=== PATIENT | female | born 1940 | race Caucasian/White ===

== ENCOUNTER 2019-04-22 07:09 | Day surgery (SDC) | payer OTHER, SELFPAY ==
[2019-04-22 07:20] VITALS: BP 142/71; PULSE 73; RESP 16; TEMP 35.6; O2SAT 97
[2019-04-22] MEDS: Lactated Ringers 1,000 ML 80 ML IV (07:47)
[2019-04-22] MEDS: ceFAZolin 1 GM/50 ML BAG IVPB (08:25)
[2019-04-22] MEDS: Bupivacaine 0.5% Pres-Free 30 ML VIAL (08:41)
[2019-04-22] MEDS: Lidocaine 1% Multi-Dose 50 ML VIAL (08:41)
[2019-04-22] MEDS: Dexamethasone 4 MG/ML VIAL (09:16)
--- NOTE | 2019-04-22 09:29 | W.PM.DSUDISC ---
Discharge Plan Disposition Patient Disposition: HOME Condition: Good Discharge Details Attending Provider: Kleber Stearns Primary Care Provider: Anderson Julien Home Meds and New Rx's Prescriptions: New hydrocodone-acetaminophen [[place]] 5-325 mg tablet 1 tab PO Q6H PRN (Reason: pain) Qty: 7 RF: 0 Continued metformin 500 mg Tablet 500 mg PO BID RF: 0 lisinopril 20 mg Tablet 20 mg PO DAILY RF: 0 aspirin 81 mg Tablet,Delayed Release (Dr/Ec) 81 mg PO DAILY RF: 0 cyanocobalamin (vitamin B-12) [Vitamin B-12] 500 mcg Tablet 500 mcg PO DAILY RF: 0 gabapentin 300 mg Capsule 600 mg PO HS RF: 0 hydrochlorothiazide 25 mg Tablet 25 mg PO DAILY RF: 0 ibuprofen 600 mg Tablet 600 mg PO TID PRNRF: 0 naproxen 500 mg Tablet 500 mg PO BID PRNRF: 0 atorvastatin 40 mg Tablet 40 mg PO DAILY RF: 0 Discharge Instructions Activity:: Activity as Tolerated Remove Dressings/Wound Care:: Do Not Remove Shower/Bathe:: Cover Diet:: Normal Diet Discharge Orders Discharge Orders: Discharge Order (Routine); Ordered 04/22/19 Ordered By: Kleber Stearns DS: Diagnosis Discharge Diagnosis (1) Bone spur of right foot: Start date: 04/22/19 Start time: 09:30 Status: Acute
[2019-04-22 10:20] VITALS: BP 118/68; PULSE 60; RESP 16; TEMP 36.5; O2SAT 95
--- NOTE | 2019-04-22 10:44 | ROE_ITS ---
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 POSTOPERATIVE DIAGNOSIS: Same. PROCEDURE: Midtarsal dorsal exostectomy. SURGEON: Kleber Stearns D.P.M. ANESTHESIA: Monitored Anesthesia Care with local block dorsal aspect of the right foot utilizing 17 cc's 50/50 mixture 1% Lidocaine plain, 0.5% Bupivacaine plain. ANESTHESIA PROVIDER: STEPHAN Palma OPERATIVE INDICATIONS: 78-year-old female with long-term worsening pain associated with a dorsal exo stosis of the right midfoot, interfering with weightbearing, shoe gear, ambulation, even comfort at b edtime. Non-surgical options have failed to provide lasting relief of symptoms. She understands ris ks and complications to surgery pertaining to pain, scarring, infection, stiffness of the joint, neur ologic injury, ongoing discomfort potentially requiring revisional procedures. Informed consent has been obtained. No promises made to the final outcome of surgery. REPORT OF OPERATION: Karoline was brought to the operative suite, placed in the supine position where the right foot is prepped and draped in the usual sterile podiatric fashion. Anesthesia being obtai gelacio, the right foot was exsanguinated, ankle tourniquet inflated 250 mmHg. Attention was directed to the dorsal aspect of the right foot. A large midtarsal dorsal exostosis is easily palpable. A 3 cm incision was placed, centered over the exostosis utilizing a #10 scalpel. The incision was made with controlled depth. The skin was tented upwards and we could immediately s ee vital structures within the subcutaneous layers. With dissecting scissors and pickups, the tissue layers were carefully dissected, vital structures moved medially and laterally until we got down to bone. The periosteum was incised longitudinally and divided medially and laterally. Extensive degen erative arthrosis is appreciated within this region of the midfoot. With osteotome and mallet the hy perostosis at the joint lines was resected. Inspection within the joint shows degenerative changes, but articular cartilage is still noted. The dorsal surface was saucerized by curettage and rasping. Good resection of bone was appreciated. Copious irrigation was performed. The periosteal layer was repaired with simple interrupted suture #3-0 Vicryl, continued to suture upwards with #3-0 Vicryl, s witching to a #4-0 Vicryl when we got to the subcutaneous layer. The subcuticular layer was also sut ured with #4-0 Vicryl and a running subcuticular stitch of #4-0 Monocryl was then used to bring the s kin edges together. Mastisol, half-inch Steri-Strips were applied. Four milligrams of dexamethasone phosphate infused deeply into the wound. Xeroform, gauze fluff compression dressings applied. The tourniquet was released at thirty-seven minutes, vascularity returning immediately to all toes. Ruth Ann randall left the OR with vital signs stable, vascular status intact. Sharp and sponge counts were correc t. She will be followed by me in the office next week. cc: Anderson Julien D.O.
== END 2019-04-22 11:05 | disposition home or self-care (01) ==
PROVIDERS: PCP Internal Medicine; Visit Provider Podiatrist
PROC: (CPT 28288; principal; 2019-04-22 08:30)
DX: M77.51 Other enthesopathy of right foot and ankle (principal); M79.671 Pain in right foot; E11.42 Type 2 diabetes mellitus with diabetic polyneuropathy; I10 Essential (primary) hypertension
CPT/HCPCS: 28104; J0690; J1100

== ENCOUNTER 2021-11-21 01:12 | Outpatient (CLI) | payer MEDICARE, SELFPAY ==
--- NOTE | 2021-11-21 | DI.MRI_ITS ---
Exam(s) MR LOWER EXTREMITY RT WO/W EXAM: MR LOWER EXTREMITY RT WO/W CLINICAL HISTORY: PAIN, SWELLING RT FOOT, ? NEUROMA TECHNIQUE: Multiplanar multisequence MRI was performed. COMPARISON: There are no plain films of the foot available at the time of this MRI interpretation FINDINGS: SKIN/SUBCUTANEOUS TISSUES: There is no evidence of ulcer nor subcutaneous tract. No soft tissue absc ess evident. MARROW:No evidence of fracture nor bone contusion. No osseous lesions nor erosions. There are no si gnificant osseous lesions. ARTICULATIONS: No evidence of fracture at the level of the Lisfranc joint. Main Lisfranc ligament ap pears intact. There are, however, degenerative changes evident in the midfoot at the articulations b etween the bases of the metatarsals and the cuneiforms and cuboid. This is most prominent at the art iculations between base of 2nd and 3rd metatarsals the middle and lateral cuneiform, respectively. T here are degenerative subarticular cysts noted on both sides these joints. There is a prominent amount of signal abnormality evident within the middle cuneiform. There are also some degenerative change at the articulation between the bases of the 4th and 5th meta tarsals and the cuboid. There is relative sparing of the articulation between the base of the great toe metatarsal and medial cuneiform. There is a small joint effusion evident within the great toe metatarsophalangeal joint. However, onl y mild degenerative changes are noted in this joint and no erosions. The subjacent sesamoid bones ap pear unremarkable. There are no flexion deformities MUSCLES/TENDONS: No obvious tears nor prominent tenosynovitis evident. EXTRAMUSCULAR SOFT TISSUES: No mass seen. No evidence of Warner's interdigital neuroma OTHER: There is a skin marker over the dorsal aspect of the foot at the proximal 1st metatarsal level . There is no abnormal soft tissue swelling at this level. No evidence of tenosynovitis. IMPRESSION: 1. Main finding here are significant degenerative changes at the midfoot articulations between the ba ses of the metatarsals and the cuneiform bones and cuboid, with joint space narrowing and degenerativ e subarticular cysts in these joints evident. There is relative sparing of the articulation between the great toe metatarsal and the medial cuneiform. 2. Most significant intraosseous signal abnormality is in the middle cuneiform, possibly related to t he degenerative changes but cannot exclude prior stress fracture at this level. 3. No evidence of Warner's interdigital neuroma. 4. No evidence of skin ulcer, abscess, nor osteomyelitis DATA REPOSITORY:
[2021-11-21 09:20] LABS: BUN 35 mg/dL (7-18); CREATININE 1.4 mg/dL (0.55-1.02)
[2021-11-21] MEDS: Normal Saline Flush 10 ML SYR IVP (09:55)
[2021-11-21] MEDS: Gadoterate meglumine 20 ML VIAL 13 ML IVP (09:56)
== END 2021-11-21 01:32 ==
PROVIDERS: PCP Internal Medicine; Visit Provider Podiatrist
DX: M79.671 Pain in right foot (principal); M79.89 Other specified soft tissue disorders; Z01.812 Encounter for preprocedural laboratory examination; M19.071 Primary osteoarthritis, right ankle and foot; M89.8X7 Other specified disorders of bone, ankle and foot
CPT/HCPCS: 84520; 73720; 82565

== ENCOUNTER 2023-03-13 08:52 | Day surgery (SDC) | payer MEDICARE, SELFPAY ==
--- NOTE | 2023-03-13 06:43 | W.ANESPRE ---
General Info Date of Service Date Performed: 03/13/23 Height: 4 ft 11 in Weight: 66.224 kg Body Mass Index (BMI): 29.5 Surgical Procedure: Operation Date: 03/13/23 10:40 Proposed Procedure Side Surgeon p Cataract Extraction with IOL Implant Left Nick Betancur MD Meds Allergies and Home Medications Allergies Allergy/AdvReac Type Severity Reaction Status Date / Time cefazolin Allergy Severe Anaphylaxis Verified 03/13/23 09:08 No Known Drug Allergies Allergy Unknown Verified 03/13/23 09:08 Home Medication Medication Instructions Recorded atorvastatin 40 mg tablet 40 mg PO DAILY 04/19/19 cyanocobalamin (vitamin B-12) 500 500 mcg PO DAILY 04/19/19 mcg tablet (Vitamin B-12) gabapentin 300 mg capsule 600 mg PO TID 04/19/19 ibuprofen 600 mg tablet 600 mg PO TID PRN 04/19/19 lisinopril 20 mg tablet 20 mg PO DAILY 04/19/19 metformin 500 mg tablet 500 mg PO BID 04/19/19 naproxen 500 mg tablet 500 mg PO BID PRN 04/19/19 hydrocodone 5 mg-acetaminophen 325 1 tab PO Q6H PRN pain #7 tabs 04/22/19 mg tablet ([place]) amlodipine 5 mg tablet 5 mg PO DAILY 03/11/23 hydrochlorothiazide 25 mg tablet 25 mg PO DAILY 03/11/23 pantoprazole 40 mg tablet,delayed 40 mg PO DAILY 03/11/23 release Current Visit Medications: Current Medications Generic Name Dose Route Start Last Admin Trade Name Freq PRN Reason Stop Dose Admin Acetaminophen 1,000 mg 03/13/23 06:00 Acetaminophen 500 Mg Tab PO 04/12/23 05:59 Q4H PRN PRN Balanced Salt Solution 500 ml 03/13/23 06:00 Balanced Salt Soln.-Plus 500 Ml Bag OP 04/12/23 05:59 DIRECTED KURT Miscellaneous Medication 0 ml 03/13/23 06:00 Prednisolone 1%, Moxifloxacin 0.5%, Nepafenac 0.1% 5ml Btl OS 04/12/23 05:59 DIRECTED KURT Miscellaneous Medication 0 ml 03/13/23 06:00 Tropicam./Phenyleph. (1/2.5%) 5 Ml Btl OS 04/12/23 05:59 DIRECTED KURT Tetracaine HCl 0 ml 03/13/23 06:00 Tetracaine 0.5% 4 Ml Btl OS 04/12/23 05:59 DIRECTED [facility] PFSH Active Problems Active Problems: Problem Status Onset Code Bone spur of right foot M77.51 Medical History Medical History Anemia Aortic valve stenosis Per PCP stable, mild disease Bhatti's palsy Diabetes mellitus High cholesterol Hydronephrosis Hypertension Neuropathy Obesity Pain in lower limb Spasm Steatohepatitis Surgical History Surgical History History of foot surgery History of hysterectomy History of spinal surgery Hx of lithotripsy Tobacco Smoking/Tobacco Use Status: Never Alcohol Alcohol Intake: never Substance Use Substance use: Never Substance use type: does not use Vital Signs and Lab Results Vital Signs Most Recent Vital Signs in EMR: Temp Pulse Resp BP Pulse Ox 36.4 C L 69 16 161/87 H 98 03/13/23 09:14 03/13/23 09:14 03/13/23 09:14 03/13/23 09:14 03/13/23 09:14 Lab Results Blood Type / Crossmatch: No Data to Display Complete Blood Count: No Data to Display Complete Metabolic Panel: No Data to Display Liver Function Panel: No Data to Display Coagulation Panel: No Data to Display Cardiac Panel: No Data to Display Arterial Blood Gas: No Data to Display Venous Blood Gas: No Data to Display Pancreas Panel: No Data to Display Thyroid Panel: No Data to Display Infectious Disease: No Data to Display Blood Cultures: No Data to Display Toxicology Panel: No Data to Display Anesthesia Assessment and Plan Anesthesia History Personal History: No History of Anesthesia Complications Family History: No Family History of Anesthesia Complications Exercise Tolerance Exercise Tolerance: Metabolic Equivalents>4 Cardiac & Pulmonary Exam Cardiac Exam: Normal S1/S2 Heart Sounds Pulmonary Exam: Clear Bilateral Breath Sounds Implantable Cardiac Device Does patient have a Pacemaker or an ICD?: No Airway Exam Known Difficult Airway: No Mallampati Class: 3 Mouth Opening: Narrow (< 3cm) Thyromental Distance: Less than 3 cm Neck Range of Motion: Limited ROM Neck Circumference: Normal Teeth Condition: Generalized Poor Dentition ASA Classification ASA Score: ASA 3 Emergency Case?: No NPO Status NPO Status: NPO Clears >2 hours, Solids >8 hours Anesthesia Plan Resuscitation Status: Full Code Anesthesia Technique: MAC Anesthesia Airway Planned: Natural Airway Monitors Used: Standard Monitors Preoperative Comments:: 82 yo female. no MKO. Sig PMHx: AoV stenosis (no echo on file, mild per PCP), DM, HTN, ckdIII never smoker, GERD. Previous Anes: - prop, natural airway, no issues.
[2023-03-13 09:14] VITALS: BP 161/87; PULSE 69; RESP 16; TEMP 36.4; O2SAT 98
[2023-03-13 09:17] VITALS: BMI 29.5
[2023-03-13] MEDS: Tropicam./Phenyleph. (1/2.5%) 5 ML BTL OS ×3 (09:26→09:38)
[2023-03-13] MEDS: Balanced Salt Soln.-PLUS 500 ML BAG OP (11:01)
[2023-03-13] MEDS: Duovisc Viscoelastic System EACH 1 EACH (11:03)
[2023-03-13] MEDS: Tetracaine 0.5% 4 ML BTL OS (11:03)
[2023-03-13] MEDS: Lidocaine 1% Pres-Free 5 ML VIAL (11:04)
[2023-03-13] MEDS: Povidone-Iodine Ophth 30 ML BTL (11:05)
[2023-03-13] MEDS: Phenylephrine/Lidocaine (15/10) MG/ML 1 ML VIAL (11:05)
[2023-03-13 11:15] VITALS: BP 154/65; PULSE 82; RESP 18; TEMP 36.5; O2SAT 99
--- NOTE | 2023-03-13 11:17 | PDOC.DSDIS_ITS ---
Date of service: 03/13/23 Time of Service: 11:17 Discharge Plan Disposition Patient Disposition: Home Discharge Details Attending Provider: Nick Betancur Primary Care Provider: Anderson Julien Home Meds and New Rx's Prescriptions: No Action metformin 500 mg Tablet 500 mg PO BID lisinopril 20 mg Tablet 20 mg PO DAILY cyanocobalamin (vitamin B-12) [Vitamin B-12] 500 mcg Tablet 500 mcg PO DAILY gabapentin 300 mg Capsule 600 mg PO TID ibuprofen 600 mg Tablet 600 mg PO TID PRN naproxen 500 mg Tablet 500 mg PO BID PRN atorvastatin 40 mg Tablet 40 mg PO DAILY hydrocodone-acetaminophen [[place]] 5-325 mg tablet 1 tab PO Q6H PRN (Reason: pain) Qty: 7 0RF amlodipine 5 mg tablet 5 mg PO DAILY Patient Comments: TAKE ONE TABLET BY MOUTH EVERY DAY pantoprazole 40 mg tablet,delayed release (DR/EC) 40 mg PO DAILY Patient Comments: TAKE ONE TABLET BY MOUTH TWICE A DAY hydrochlorothiazide 25 mg tablet 25 mg PO DAILY Patient Comments: TAKE ONE TABLET BY MOUTH EVERY DAY Discharge Instructions Stand Alone Forms: Post-op Topical Cataract, Shannon Barker (DSU) Discharge Orders Discharge Orders: Discharge Order (Routine); Ordered 03/13/23 Ordered By: Nick Betancur DS: Diagnosis Discharge Diagnosis (1) Nuclear age-related cataract, left eye: Status: Resolved (2) Cortical age-related cataract, left eye: Status: Resolved
--- NOTE | 2023-03-13 11:18 | W.PM.OP ---
Date of service: 03/13/23 Time of Service: 11:18 Operative Note Operative Note DATE OF PROCEDURE: 03/13/23 PRE-OP DIAGNOSIS: Nuclear/cortical cataract, left eye POST-OP DIAGNOSIS: same PROCEDURE: Cataract extraction using phacoemulsification with intraocular lens implant, left eye SURGEON: Nick Betancur ANESTHESIA TYPE: Local By Surgeon and MAC Refer to Anesthesia Record PATHOLOGY: none sent COMPLICATIONS: None Patient was transported to: same day Patient's condition: stable Implants: Rajat and Rajat Tecnis Eyhance [id number] Indications: Progressive decreased vision due to cataract, left eye Procedure Description: CATARACT SURGERY OPERATIVE REPORT PREOPERATIVE DIAGNOSIS: 1. Nuclear/cortical cataract, left eye POSTOPERATIVE DIAGNOSIS: Same OPERATION: 1. Cataract extraction using phacoemulsification with posterior chamber intraocular lens implant, left eye. IOL: IOL [employer] Network Manager/Model: Rajat & Rajat Tecnis Eyhance DIB00 IOL Power: + 19.5 diopters IOL Serial Number: [id number] Optic Diameter: 6.0 mm Haptic/Overall Diameter: 13.0 mm PHACO INFO: FrandyRMDMgroup Vision System with OZil and Active Fluidics Cumulative Dispersed Energy (CDE): 8.20 seconds SURGEON: Nick Betancur MD, DIOGO ANESTHESIA: Monitored A [facility] (MAC), with local sub-tenon's anesthetic infiltration COMPLICATIONS: None SPECIMENS: None INDICATIONS FOR PROCEDURE: The patient is an 82-year-old lady with history of diminished visual acuity in her left eye secondary to the development of nuclear/cortical cataract. She is significantly symptomatic that she desires cataract surgery and attempt to improve and maximize her vision. The option of cataract surgery was offered to the patient and she wished to proceed. See office notes for detailed information. PROCEDURE: The correct surgical eye was identified and marked as the left eye and the pupil was dilated in the preoperative area using mydriatics and cycloplegics. The dilated pupil size was 7.0 mm. The patient elected to proceed without oral sedation. The patient was brought to the operating room where cardiopulmonary monitoring was instituted and surgical time-out was performed, confirming the correct operative eye and IOL power. Topical anesthesia was administered and ophthalmic povidone-iodine 5% was instilled into the conjunctival fornices. The luly-ocular area was prepped with Betadine 10% solution and draped in the usual sterile fashion for intraocular surgery, including an aperture drape. A Tegaderm transparent film dressing was cut in half and used to cover the lashes and lid margins. Care was taken to sequester the lashes and lid margins under the Tegaderm dressing. A lid speculum was placed between the lids of the operative eye and the Frandy LuxOR Revalia operating microscope was maneuvered into position. María scissors were then used to make a conjunctival buttonhole approximately 6mm posterior to the limbus in the inferonasal quadrant. Blunt dissection was carried out to expose bare sclera, and a blunt-tipped sub-tenon?s anesthesia cannula was introduced and passed posteriorly along the globe where non-preserved plain lidocaine was injected into posterior sub-Tenon?s space. A sideport knife was used to make a paracentesis port superiorly/superiortemporally. Intraocular phenylephrine/lidocaine was injected int the anterior chamber.. The anterior chamber was filled with viscoelastic. A keratome knife was used to construct a 2-plane near-clear corneal tunnel extending 2.0mm into clear cornea temporally. A flap was raised on the anterior capsule and capsulorhexis forceps were used to complete a continuous curvilinear capsulorhexis of 5.5 mm. Balanced salt solution was then used to perform cortical cleaving hydrodissection and nuclear hydrodelineation until the lens could be freely rotated within the capsular bag. The lens nucleus was then disassembled and removed within the capsular bag and iris plane using phacoemulsification. Residual cortical material was removed using the 45-degree angled silicone I/A tip with 0.3mm port. The posterior capsule was carefully polished to remove as much residual lens epithelial cells as safely possible. The capsular bag was then inflated and the anterior chamber deepened with viscoelastic. The lens implant described above was inserted into the capsular bag using the Rajat and Rajat Simplicity pre-loaded injector. . A Kuglen hook was used to dial the IOL into position. Residual viscoelastic was then removed first from posterior to the IOL, then from the anterior chamber using the I/A handpiece. The lens implant was noted to center nicely within the capsular bag. The incisions were stromally hydrated, and the anterior chamber was reformed using BSS. Then 0.5cc of moxifloxacin 1.0mg/ml were injected into the capsular bag and anterior chamber. The incisions were checked with a Weck spear and found to be secure. Several drops of ophthalmic povidone-iodine 5% were then applied to the eye followed by two drops of Imprimis combination prednisolone/moxifloxacin/nepafenac solution. The drapes were removed and a clear plastic protective eye shield was placed over the eye. The patient was then returned to Same Day Surgery in stable condition.
--- NOTE | 2023-03-13 11:41 | W.ANESPOSTOP ---
Postoperative Evaluation Date, Time and Location Date Performed: 03/13/23 Time Performed: 11:25 Patient Location: Day Surgery Unit Vital Signs Most Recent Imported Vital Signs: Most Recent Vital Signs Temp Pulse Resp BP Pulse Ox 36.5 C 82 18 154/65 H 99 03/13/23 11:15 03/13/23 11:15 03/13/23 11:15 03/13/23 11:15 03/13/23 11:15 Pain Score Most Recent Pain Score: Most Recent Pain Score Pain Level 0 03/13/23 11:15 Assessment Mental Status: Awake (Alert & Oriented to Patient Baseline) Airway and Respiratory Function: Patent airway with normal (patient baseline) respiratory exam Cardiovascular Function: Hemodynamically Stable Hydration Status: Adequately Hydrated Nausea & Vomiting: No Nausea or Vomiting Pain: Pt. Denies Any Pain Peripheral Nerve Block: Patient did not receive a nerve block
== END 2023-03-13 10:32 | disposition home or self-care (01) ==
PROVIDERS: PCP Internal Medicine; Visit Provider Ophthalmology
PROC: (CPT 66984; principal; 2023-03-13 10:30)
DX: H25.12 Age-related nuclear cataract, left eye (principal); H25.012 Cortical age-related cataract, left eye; I10 Essential (primary) hypertension
CPT/HCPCS: 66984; V2632

== ENCOUNTER 2023-03-27 08:05 | Day surgery (SDC) | payer MEDICARE, SELFPAY ==
--- NOTE | 2023-03-27 07:06 | W.PREOPHP ---
Assessment and Plan Assessment and plan (1) Nuclear age-related cataract, right eye: Status: Chronic Assessment and plan: Assessment: Visually significant cataract of the right eye. Plan: Cataract extraction with lens implantation of the right eye. (2) Cortical age-related cataract, right eye: Status: Chronic Assessment and plan: Assessment: Visually significant cataract of the right eye. Plan: Cataract extraction with lens implantation of the right eye. History of Present Illness History of Present Illness Chief Complaint: Progressive decreased vision, right eye Narrative: Patient is an 82-year-old lady who originally presented with complaints of progressive decreased vision in both eyes at distance. On examination she was noted to have visual acuity of 20/30 OD, 20/40 OS in the presence of moderate nuclear and cortical cataract. The option of cataract surgery was offered to the patient and she felt she was symptomatic enough that she wished to proceed. She underwent cataract surgery in the left eye on 03/13/2023 and postoperatively has regained uncorrected visual acuity of 20/25 in the left eye. She now presents for cataract surgery in the right eye. Review of Systems All systems reviewed & are unremarkable except as noted in HPI and below PFSH All Active Problems Cortical age-related cataract, right eye (Chronic) Nuclear age-related cataract, right eye (Chronic) Bone spur of right foot (Acute) Medical History Anemia Aortic valve stenosis Per PCP stable, mild disease Bhatti's palsy Claustrophobia Pt. states she has a very hard time with the blue drapes being tied up around her head during last cataract surgery, states she is very claustrophobic Diabetes mellitus High cholesterol Hydronephrosis Hypertension Neuropathy Obesity Pain in lower limb Spasm Steatohepatitis Surgical History History of foot surgery History of hysterectomy History of spinal surgery Hx of lithotripsy Social History Smoking/Tobacco Use Status: Never Smoking risk assessment performed?: Yes Alcohol Intake: never Drug use: Never Substance use type: does not use Do you feel safe at home: Yes Do you feel safe in your relationship?: Yes Meds Allergies and Home Medications Allergies Allergy/AdvReac Type Severity Reaction Status Date / Time cefazolin Allergy Severe Anaphylaxis Verified 03/27/23 08:21 Home Medications Medication Instructions Recorded Confirmed Type atorvastatin 40 mg tablet 40 mg PO DAILY 04/19/19 03/27/23 History cyanocobalamin (vitamin B-12) 500 500 mcg PO DAILY 04/19/19 03/27/23 History mcg tablet (Vitamin B-12) gabapentin 300 mg capsule 600 mg PO TID 04/19/19 03/27/23 History ibuprofen 600 mg tablet 600 mg PO TID PRN 04/19/19 03/26/23 History lisinopril 20 mg tablet 20 mg PO DAILY 04/19/19 03/27/23 History metformin 500 mg tablet 500 mg PO BID 04/19/19 03/27/23 History naproxen 500 mg tablet 500 mg PO BID PRN 04/19/19 03/26/23 History hydrocodone 5 mg-acetaminophen 325 1 tab PO Q6H PRN pain #7 tabs 04/22/19 03/26/23 Rx mg tablet ([facility] [place]) amlodipine 5 mg tablet 5 mg PO DAILY 03/11/23 03/27/23 History hydrochlorothiazide 25 mg tablet 25 mg PO DAILY 03/11/23 03/27/23 History pantoprazole 40 mg tablet,delayed 40 mg PO DAILY 03/11/23 03/27/23 History release Exam Eyes Other: Most recent ocular examination reveals visual acuity of 20/30 OD, 20/25 OS. Intraocular pressure 17 OD, 18 OS. There is a well-positioned PCIOL in the left eye with clear posterior capsule. Mild cortical with moderate nuclear cataract is present in the right eye. Dilated funduscopic examination reveals disc cupping of 0.2 OU with normal vessels, macula, peripheral retina and vitreous. Resp Auscultation: clear to auscultation bilaterally Cardio Rate: regular rate Rhythm: regular rhythm
[2023-03-27 08:10] VITALS: BP 178/91; PULSE 72; RESP 18; TEMP 36.4; O2SAT 97
[2023-03-27] MEDS: Tropicam./Phenyleph. (1/2.5%) 5 ML BTL OD ×3 (08:20→08:33)
--- NOTE | 2023-03-27 08:33 | ANES.PREOP_ITS ---
General Info Date of Service Date Performed: 03/27/23 Height: 4 ft 11 in Weight: 65.5 kg Body Mass Index (BMI): 29.1 Surgical Procedure: Operation Date: 03/27/23 09:55 Proposed Procedure Side Surgeon p Cataract Extraction with IOL Implant Right Nick Betancur MD Meds Allergies and Home Medications Allergies Allergy/AdvReac Type Severity Reaction Status Date / Time cefazolin Allergy Severe Anaphylaxis Verified 03/27/23 08:21 Home Medication Medication Instructions Recorded atorvastatin 40 mg tablet 40 mg PO DAILY 04/19/19 cyanocobalamin (vitamin B-12) 500 500 mcg PO DAILY 04/19/19 mcg tablet (Vitamin B-12) gabapentin 300 mg capsule 600 mg PO TID 04/19/19 ibuprofen 600 mg tablet 600 mg PO TID PRN 04/19/19 lisinopril 20 mg tablet 20 mg PO DAILY 04/19/19 metformin 500 mg tablet 500 mg PO BID 04/19/19 naproxen 500 mg tablet 500 mg PO BID PRN 04/19/19 hydrocodone 5 mg-acetaminophen 325 1 tab PO Q6H PRN pain #7 tabs 04/22/19 mg tablet ([place]) amlodipine 5 mg tablet 5 mg PO DAILY 03/11/23 hydrochlorothiazide 25 mg tablet 25 mg PO DAILY 03/11/23 pantoprazole 40 mg tablet,delayed 40 mg PO DAILY 03/11/23 release Current Visit Medications: Current Medications Generic Name Dose Route Start Last Admin Trade Name Freq PRN Reason Stop Dose Admin Acetaminophen 1,000 mg 03/27/23 06:00 Acetaminophen 500 Mg Tab PO 04/26/23 05:59 Q4H PRN PRN Balanced Salt Solution 500 ml 03/27/23 06:00 Balanced Salt Soln.-Plus 500 Ml Bag OP 04/26/23 05:59 DIRECTED KURT Miscellaneous Medication 0 ml 03/27/23 06:00 Prednisolone 1%, Moxifloxacin 0.5%, Nepafenac 0.1% 5ml Btl OD 04/26/23 05:59 DIRECTED KURT Miscellaneous Medication 0 ml 03/27/23 06:00 Tropicam./Phenyleph. (1/2.5%) 5 Ml Btl OD 04/26/23 05:59 DIRECTED KURT Tetracaine HCl 0 ml 03/27/23 06:00 Tetracaine 0.5% 4 Ml Btl OD 04/26/23 05:59 DIRECTED [facility] Active Problems Active Problems: Problem Status Onset Code Cortical age-related cataract, right eye H25.011 Nuclear age-related cataract, right eye H25.11 Bone spur of right foot M77.51 Nuclear age-related cataract, left eye H25.12 Cortical age-related cataract, left eye H25.012 Medical History Medical History Anemia Aortic valve stenosis Per PCP stable, mild disease Bhatti's palsy Claustrophobia Pt. states she has a very hard time with the blue drapes being tied up around her head during last cataract surgery, states she is very claustrophobic Diabetes mellitus High cholesterol Hydronephrosis Hypertension Neuropathy Obesity Pain in lower limb Spasm Steatohepatitis Surgical History Surgical History History of foot surgery History of hysterectomy History of spinal surgery Hx of lithotripsy Tobacco Smoking/Tobacco Use Status: Never Alcohol Alcohol Intake: never Substance Use Substance use: Never Substance use type: does not use Vital Signs and Lab Results Vital Signs Most Recent Vital Signs in EMR: Most Recent Vital Signs Temp Pulse Resp BP Pulse Ox 36.4 C L 72 18 178/91 H 97 03/27/23 08:10 03/27/23 08:10 03/27/23 08:10 03/27/23 08:10 03/27/23 08:10 Lab Results Blood Type / Crossmatch: No Data to Display Complete Blood Count: No Data to Display Complete Metabolic Panel: No Data to Display Liver Function Panel: No Data to Display Coagulation Panel: No Data to Display Cardiac Panel: No Data to Display Arterial Blood Gas: No Data to Display Venous Blood Gas: No Data to Display Pancreas Panel: No Data to Display Thyroid Panel: No Data to Display Infectious Disease: No Data to Display Blood Cultures: No Data to Display Toxicology Panel: No Data to Display Anesthesia Assessment and Plan Anesthesia History Personal History: No History of Anesthesia Complications Family History: No Family History of Anesthesia Complications Exercise Tolerance Exercise Tolerance: Metabolic Equivalents>4 Pertinent Negatives Pertinent Negatives: No Symptoms of GERD Cardiac & Pulmonary Exam Cardiac Exam: Normal S1/S2 Heart Sounds Pulmonary Exam: Clear Bilateral Breath Sounds Implantable Cardiac Device Does patient have a Pacemaker or an ICD?: No Airway Exam Known Difficult Airway: No Mallampati Class: 3 Mouth Opening: Narrow (< 3cm) Thyromental Distance: Less than 3 cm Neck Range of Motion: Limited ROM Neck Circumference: Normal Teeth Condition: Generalized Poor Dentition ASA Classification ASA Score: ASA 3 Emergency Case?: No NPO Status NPO Status: NPO Clears >2 hours, Solids >8 hours Anesthesia Plan Resuscitation Status: Full Code Anesthesia Technique: MAC Anesthesia Airway Planned: Natural Airway Monitors Used: Standard Monitors Preoperative Comments:: Claustrophobic. No new issues since recent cataract surgery. Wants mko this time
[2023-03-27 08:50] VITALS: BMI 29.1
[2023-03-27] MEDS: Tetracaine 0.5% 4 ML BTL OD (09:57)
[2023-03-27] MEDS: Balanced Salt Soln.-PLUS 500 ML BAG OP (09:57)
[2023-03-27] MEDS: Lidocaine 1% Pres-Free 5 ML VIAL (09:58)
[2023-03-27] MEDS: Duovisc Viscoelastic System EACH 1 EACH (09:58)
[2023-03-27] MEDS: Phenylephrine/Lidocaine (15/10) MG/ML 1 ML VIAL (09:59)
[2023-03-27] MEDS: Povidone-Iodine Ophth 30 ML BTL (10:00)
[2023-03-27 10:12] VITALS: BP 135/68; PULSE 72; RESP 18; TEMP 36.1; O2SAT 96
--- NOTE | 2023-03-27 10:13 | W.PM.DSUDISC ---
Date of service: 03/27/23 Time of Service: 10:13 Discharge Plan Disposition Patient Disposition: Home Discharge Details Attending Provider: Nick Betancur Primary Care Provider: Anderson Julien Home Meds and New Rx's Prescriptions: No Action metformin 500 mg Tablet 500 mg PO BID lisinopril 20 mg Tablet 20 mg PO DAILY cyanocobalamin (vitamin B-12) [Vitamin B-12] 500 mcg Tablet 500 mcg PO DAILY gabapentin 300 mg Capsule 600 mg PO TID ibuprofen 600 mg Tablet 600 mg PO TID PRN naproxen 500 mg Tablet 500 mg PO BID PRN atorvastatin 40 mg Tablet 40 mg PO DAILY hydrocodone-acetaminophen [[place]] 5-325 mg tablet 1 tab PO Q6H PRN (Reason: pain) Qty: 7 0RF amlodipine 5 mg tablet 5 mg PO DAILY Patient Comments: TAKE ONE TABLET BY MOUTH EVERY DAY pantoprazole 40 mg tablet,delayed release (DR/EC) 40 mg PO DAILY Patient Comments: TAKE ONE TABLET BY MOUTH TWICE A DAY hydrochlorothiazide 25 mg tablet 25 mg PO DAILY Patient Comments: TAKE ONE TABLET BY MOUTH EVERY DAY Discharge Instructions Stand Alone Forms: Post-op Topical Cataract, Shannon Barker (DSU) Discharge Orders Discharge Orders: Discharge Order (Routine); Ordered 03/27/23 Ordered By: Nick Betancur DS: Diagnosis Discharge Diagnosis (1) Nuclear age-related cataract, right eye: Status: Resolved (2) Cortical age-related cataract, right eye: Status: Resolved
--- NOTE | 2023-03-27 10:13 | W.PM.OP ---
Date of service: 03/27/23 Time of Service: 10:13 Operative Note Operative Note DATE OF PROCEDURE: 03/27/23 PRE-OP DIAGNOSIS: Nuclear/cortical cataract, right eye POST-OP DIAGNOSIS: same PROCEDURE: Cataract extraction using phacoemulsification with intraocular lens implant, right eye SURGEON: Nick Betancur ANESTHESIA TYPE: Local By Surgeon and MAC Refer to Anesthesia Record ESTIMATED BLOOD LOSS: 0 PATHOLOGY: none sent COMPLICATIONS: None Patient was transported to: same day Patient's condition: stable Implants: Rajat & Rajat Tecnis Eyhance [id number] Indications: Progressive visual loss due to cataract, right eye Procedure Description: CATARACT SURGERY OPERATIVE REPORT PREOPERATIVE DIAGNOSIS: 1. Nuclear/cortical cataract, right eye POSTOPERATIVE DIAGNOSIS: Same OPERATION: 1. Cataract extraction using phacoemulsification with posterior chamber intraocular lens implant, right eye. IOL: IOL Hot Metal Car Operator/Model: Rajat & Rajat Tecnis Eyhance DIB00 IOL Power: +19.5 diopters IOL Serial Number: [id number] Optic Diameter: 6.0mm Haptic/Overall Diameter: 13.0mm PHACO INFO: FrandyGeneraytorurion Vision System with OZil and Active Fluidics Cumulative Dispersed Energy (CDE): 10.47seconds SURGEON: Nick Betancur MD, DIOOG ANESTHESIA: Monitored Anesthesia Care (MAC), with local sub-tenon's anesthetic infiltration COMPLICATIONS: None SPECIMENS: None INDICATIONS FOR PROCEDURE: The patient is a 82-year-old lady with history of diminished visual acuity in both eyes secondary to the development of bilateral nuclear/cortical cataract. She has already undergone cataract surgery in the left eye and has done well postoperatively. She now presents for cataract surgery in the right eye. See office notes for detailed information. PROCEDURE: The correct surgical eye was identified and marked as the right eye and the pupil was dilated in the preoperative area using mydriatics and cycloplegics. The dilated pupil size was 7.0 mm. Oral sedation was administered in the form of an Imprimis MKO Melt (midazolam 3mg/ketamine 25mg/ondansetron 2mg). The patient was brought to the operating room where cardiopulmonary monitoring was instituted and surgical time-out was performed, confirming the correct operative eye and IOL power. Topical anesthesia was administered and ophthalmic povidone-iodine 5% was instilled into the conjunctival fornices. The luly-ocular area was prepped with Betadine 10% solution and draped in the usual sterile fashion for intraocular surgery, including an aperture drape. A Tegaderm transparent film dressing was cut in half and used to cover the lashes and lid margins. Care was taken to sequester the lashes and lid margins under the Tegaderm dressing. A lid speculum was placed between the lids of the operative eye and the Frandy LuxOR Revalia operating microscope was maneuvered into position. María scissors were then used to make a conjunctival buttonhole approximately 6mm posterior to the limbus in the inferonasal quadrant. Blunt dissection was carried out to expose bare sclera, and a blunt-tipped sub-tenon?s anesthesia cannula was introduced and passed posteriorly along the globe where non-preserved plain lidocaine was injected into posterior sub-Tenon?s space. A sideport knife was used to make a paracentesis port. Intraocular phenylephrine/lidocaine was injected into the anterior chamber. The anterior chamber was filled with viscoelastic. A keratome knife was used to construct a 2-plane clear corneal tunnel extending 2.0mm into clear cornea. A flap was raised on the anterior capsule and capsulorhexis forceps were used to complete a continuous curvilinear capsulorhexis of 5.0 mm. Balanced salt solution was then used to perform cortical cleaving hydrodissection and nuclear hydrodelineation until the lens could be freely rotated within the capsular bag. The lens nucleus was then disassembled and removed within the capsular bag and iris plane using phacoemulsification. Residual cortical material was removed using the I/A handpiece. The posterior capsule was carefully polished to remove as much residual lens epithelial cells as safely possible. The capsular bag was then inflated and the anterior chamber deepened with cohesive viscoelastic. The lens implant described above was inserted into the capsular bag using the Rajat and Mandy Simplicity pre-loaded injector. A Kuglen hook was used to dial the IOL into position. Residual viscoelastic was then removed first from posterior to the IOL, then from the anterior chamber using the I/A handpiece. The lens implant was noted to center nicely within the capsular bag. The incisions were stromally hydrated, and the anterior chamber was reformed using BSS. Then 0.5cc of moxifloxacin 1.0mg/ml were injected into the capsular bag and anterior chamber. The incisions were checked with a Weck spear and found to be secure. Several drops of ophthalmic povidone-iodine 5% were then applied to the eye followed by two drops of Imprimis combination prednisolone/moxifloxacin/nepafenac solution. The drapes were removed and a clear plastic protective eye shield was placed over the eye. The patient was then returned to Same Day Surgery in stable condition.
--- NOTE | 2023-03-27 10:34 | W.ANESPOSTOP ---
Postoperative Evaluation Date, Time and Location Date Performed: 03/27/23 Time Performed: 10:18 Patient Location: Day Surgery Unit Vital Signs Most Recent Imported Vital Signs: Most Recent Vital Signs Temp Pulse Resp BP Pulse Ox 36.1 C L 72 18 135/68 96 03/27/23 10:12 03/27/23 10:12 03/27/23 10:12 03/27/23 10:12 03/27/23 10:12 Pain Score Most Recent Pain Score: Most Recent Pain Score Pain Level 0 03/27/23 10:12 Assessment Mental Status: Awake (Alert & Oriented to Patient Baseline) Airway and Respiratory Function: Patent airway with normal (patient baseline) respiratory exam Cardiovascular Function: Hemodynamically Stable Hydration Status: Adequately Hydrated Nausea & Vomiting: No Nausea or Vomiting Pain: Pt. Denies Any Pain Peripheral Nerve Block: Patient did not receive a nerve block
[2023-03-27 10:37] VITALS: BP 128/71; PULSE 76; RESP 16; TEMP 36; O2SAT 95
== END 2023-03-27 11:00 | disposition home or self-care (01) ==
PROVIDERS: PCP Internal Medicine; Visit Provider Ophthalmology
PROC: (CPT 66984; principal; 2023-03-27 09:45)
DX: H25.11 Age-related nuclear cataract, right eye (principal); H25.011 Cortical age-related cataract, right eye; I10 Essential (primary) hypertension; Z98.42 Cataract extraction status, left eye
CPT/HCPCS: 66984; V2632